=== PATIENT | female | born 1985 | race Caucasian/White ===

== ENCOUNTER → 2019-05-14 | Outpatient (CLI) | payer MEDICAID | LOC: COL.VAS 12:09 | DX: M79.89 Other specified soft tissue disorders (principal) ==

== ENCOUNTER 2020-01-12 12:44 | Emergency (ER) | payer MEDICAID ==
[~2020-01-12] VITALS: Ht 154.9 cm; Wt 77.1 kg
[~2020-01-12 12:44] MED LIST: NORETHINDRONE AC5 MG PO; REQUIP 0.5MG0.5 MG PO; VENLAFAXINE225 MG PO
[2020-01-12 14:18] LABS: BASO # 0.1 (0.0-0.2); BASO % 0.7 % (0.0-2.0); EOS # 0.2 (0.0-0.7); EOS % 1.4 % (0-4.0); GRAN % 55.4 % (42.2-75.2); MEAN CELL VOLUME 69 fl (80.0-100.0); MEAN CORPUSCULAR HGB CONC 28 g/dl (33.0-37.0); MEAN PLATELET VOLUME 10.2 fl (7.4-10.4); MONO # 0.6 (0.1-0.6); PLATELET COUNT 559 K/mm3 (130-400); RED BLOOD COUNT 4.41 M/mm3 (4.10-5.30); REDCELL DISTRIBUTION WIDTH-CV 16.9 % (11.5-14.5)
[2020-01-12 14:20] LABS: HEMATOCRIT 30.6 % (37.0-47.0); HEMOGLOBIN 8.5 g/dl (12.5-16.0); MEAN CORPUSCULAR HEMOGLOBIN 19 pg (27.0-31.0)
[2020-01-12] MEDS ORDERED: PREDNISONE20 MG PO (14:22)
[2020-01-12 14:25] LABS: ALBUMIN 4.3 gm/dL (3.5-5.0); BILIRUBIN,TOTAL 0.3 mg/dL (0.0-1.0); CALCIUM 9.5 mg/dL (8.4-10.2); CREATININE, serum 0.67 (0.52-1.25); POTASSIUM 4.2 mmol/L (3.4-5.0); TOTAL PROTEIN 7.5 gm/dL (6.4-8.2)
[2020-01-12 16:37] VITALS: BP 132/84; PULSE 99; TEMP 98.3
== END 2020-01-12 16:37 | disposition home or self-care (01) ==
LOC: COL.ER 12:44
PROVIDERS: Emergency Medicine
DX: T45.4X5A Adverse effect of iron and its compounds, initial encounter (principal); D50.9 Iron deficiency anemia, unspecified
CPT/HCPCS: J0171; J1200; J2930; J7030